=== PATIENT | female | born 1970 | race Caucasian/White ===

== ENCOUNTER 2019-03-26 05:52 | Day surgery (SDC) | payer MEDICARE ==
[~2019-03-26] VITALS: Ht 162.6 cm; Wt 86.2 kg
[2019-03-26] MEDS ORDERED: BUPIVACAINE 0.25% 75 MG/30 ML VIAL ONE (06:06)
[2019-03-26] MEDS ORDERED: HYDROMORPHONE INJ 2 MG/ML DISP.SYRIN ONE (06:06)
[2019-03-26] MEDS ORDERED: MIDAZOLAM HCL 2 MG/2ML VIAL ONE (06:06)
[2019-03-26] MEDS ORDERED: ANESTHESIA TRAY IN PYXIS 1 EA TRAY MC ONE (06:08)
[2019-03-26] MEDS ORDERED: ROCURONIUM BROMIDE 50 MG/5 ML ONE (06:14)
--- NOTE | 2019-03-26 06:15 | NUR ---
RN NOTES ADMITTED PATIENT SCHEDULE FOR DAY SURGERY, INITIAL ASSESSMENT DONE, CAME IN TO THE UNIT, AMBULATORY, NO APPARENT SIGNS OF DISTRESS. IV ACCESS INITIATED ON HER RIGHT WRIST G#20 SECURED AND INTACT.
[2019-03-26] MEDS ORDERED: EPINEPHRINE (1:1000) 1 MG/ML AMPUL ONE (06:17)
[2019-03-26] MEDS ORDERED: BUPIVACAINE 0.5 % PF 150 MG/30 ML VIAL ONE (06:17)
[2019-03-26] MEDS ORDERED: methylPREDNISolone ACETATE 80 MG/ML VIAL ONE (06:18)
[2019-03-26] MEDS ORDERED: LORA0.5T PO (07:14)
[2019-03-26] MEDS ORDERED: [UNRECOGNIZED DRUG - REMARK] (07:14)
[2019-03-26] MEDS ORDERED: FLEXIRIL (07:14)
[2019-03-26] MEDS ORDERED: FLUT1BLS IH (07:14)
[2019-03-26] MEDS ORDERED: cbd (07:14)
[2019-03-26] MEDS ORDERED: [UNRECOGNIZED DRUG - REMARK] (07:14)
[2019-03-26] MEDS ORDERED: LEVO5TAB29 PO (07:14)
[2019-03-26] MEDS ORDERED: FLUT16SP BNOSTRILS (07:14)
[2019-03-26] MEDS ORDERED: VILA40TA PO (07:14)
--- NOTE | 2019-03-26 07:15 | NUR ---
RN NOTES TRANSPORTED TO SURGERY.
[2019-03-26] MEDS ORDERED: EPIN0.3P3 IJ (08:37)
[2019-03-26] MEDS ORDERED: FAMO-131 PO (08:37)
[2019-03-26] MEDS ORDERED: TURM500C9 PO (08:37)
[2019-03-26] MEDS ORDERED: IBUP200C2 PO (08:37)
[2019-03-26] MEDS ORDERED: ALBU18HF2 IH (08:37)
[2019-03-26] MEDS ORDERED: MULT-447 PO (08:37)
--- NOTE | 2019-03-26 08:50 | NUR ---
RECEIVED PATIENT FROM SURGERY . AWAKE A/O X4 , NO DISTRESS NOTED, VS STABLE ON ROOM AIR. M INSTRUCTIONS NOTED: DO NOT REMOVE DRESSING , F/U WITH SURGEON IN 9 DAYS. PATIENT HAS SCHEDULED APPOINTMENT. PATIENT CAN BE D/C ANY TIME TODAY.
--- NOTE | 2019-03-26 10:30 | NUR ---
PATIENT D/C PER DR. AUGUSTIN. INSTRUCTIONS PROVIDED, PATIENT VERBALIZED UNDERSTANDING AND WILL F/U WITH IN 9 DAYS. PATIENT STATED SHE HAS PRESCRIPTION FOR PAIN MEDICATION AT HOME. PATIENT SAFELY TRANSFERRED TO [facility] VIA WHEELCHAIR ACCOMPANIED BY EARL JOHNSTON AND FRIEND JEREMIAS.
[2019-03-26] MEDS ORDERED: ACETAMINOPHEN 325 MG TABLET PO PRN (11:00)
[2019-03-26] MEDS ORDERED: MAGNESIUM HYDROXIDE 30 ML UDC PO PRN (11:00)
[2019-03-26] MEDS ORDERED: ONDANSETRON HCL/PF 4 MG/2 ML VIAL IVP PRN (11:00)
[2019-03-26] MEDS ORDERED: ALBUTEROL SULFATE 8 GM HFA.AER.AD IH PRN (11:00)
[2019-03-26] MEDS ORDERED: ZOLPIDEM TARTRATE 5 MG TABLET PO PRN (11:00)
[2019-03-26] MEDS ORDERED: FAMOTIDINE (20 MG) 20 MG TABLET PO PRN (11:00)
[2019-03-26] MEDS ORDERED: IBUPROFEN 400 MG PO PRN (11:00)
[2019-03-26] MEDS ORDERED: HYDROCODONE/APAP 5/325MG 1 EACH TABLET PO PRN (11:00)
[2019-03-26] MEDS ORDERED: MAG HYDROX/AL HYDROX/SIMETH 30 ML UDC PO PRN (11:00)
[2019-03-26] MEDS ORDERED: LORAZEPAM 0.5 MG TABLET PO SCH (17:00)
[2019-03-27] MEDS ORDERED: VILAZODONE HYDROCHLORIDE PO SCH (09:00)
[2019-03-27] MEDS ORDERED: FLUTICASONE/VILANTEROL 1 EACH BLST.W.DEV IH SCH (09:00)
[2019-03-27] MEDS ORDERED: Medication Not On Formulary EA (Turmeric Root Extract (Turmeric) 500 MG) PO SCH (09:00)
[2019-03-27] MEDS ORDERED: FLUTICASONE PROPIONATE 16 GM BOTTLE NS SCH (09:00)
[2019-03-27] MEDS ORDERED: Medication Not On Formulary EA (Multivitamin With Minerals (One Daily Complete) 1 EACH) PO SCH (09:00)
== END 2019-03-26 18:00 | disposition home or self-care (01) ==
LOC: DS 05:52 → MED 05:53 → UNDOADMIN 05:53 → UNDODISIN 10:45 → DS 18:00
PROVIDERS: ATTEND Specialist
DX: M75.42 Impingement syndrome of left shoulder (principal); M75.50 Bursitis of unspecified shoulder; F41.9 Anxiety disorder, unspecified; K21.9 Gastro-esophageal reflux disease without esophagitis; J45.909 Unspecified asthma, uncomplicated; I10 Essential (primary) hypertension; F32.9 Major depressive disorder, single episode, unspecified; G89.4 Chronic pain syndrome; Z90.710 Acquired absence of both cervix and uterus; Z98.890 Other specified postprocedural states; Z79.899 Other long term (current) drug therapy; M24.012 Loose body in left shoulder; M65.812 Other synovitis and tenosynovitis, left shoulder
CPT/HCPCS: 29824; 29826; 88304; 88311; A4217; A4565; A6402; J0171; J0690; J1100; J1170 ×2; J1200; J2250 ×2; J2704; J2765; J3490 ×4; G0378; J1040